=== PATIENT | female | born 1970 | race Caucasian/White ===

== ENCOUNTER 2019-12-16 05:43 | Inpatient (IN) | payer MEDICAID, OTHER ==
[~2019-12-16] VITALS: Ht 170.2 cm; Wt 75.4 kg
[2019-12-16] MEDS ORDERED: HEPARIN DRIP/D5W 100UNITS/ML 250 ML IV SCH ×2 (05:51→06:04)
[2019-12-16] MEDS ORDERED: ATORVASTATIN 20 MG TAB ONE (05:58)
[2019-12-16] MEDS ORDERED: HEPARIN SODIUM (PORCINE) 5000 UNITS/ML 1ML VIAL ONE (05:59)
[2019-12-16] MEDS ORDERED: HEPARIN SODIUM (PORCINE) 5000 UNITS/ML 1ML VIAL IV ONE (06:00)
[2019-12-16] MEDS ORDERED: MORPHINE SULFATE 4 MG/ML SYR/VIAL ONE (06:00)
[2019-12-16] MEDS ORDERED: HEPARIN DRIP/D5W 100UNITS/ML 250 ML IV ONE (06:00)
[2019-12-16] MEDS ORDERED: ONDANSETRON HCL 4 MG/2 ML VIAL ONE ×3 (06:00→12:48)
[2019-12-16] MEDS ORDERED: ONDANSETRON ODT 4 MG TAB PO ONE (06:00)
[2019-12-16] MEDS ORDERED: MORPHINE SULFATE 4 MG/ML SYR/VIAL IV ONE (06:00)
[2019-12-16] MEDS ORDERED: ATORVASTATIN 20 MG TAB PO ONE (06:00)
[2019-12-16 06:11] LABS: Basophils # (auto) 0.1 10 ^3/uL (0-0.2); Basophils % (auto) 0.5 % (0.0-2.0); Eosinophils # (auto) 0.4 10 ^3/uL (0-0.8); Eosinophils % (auto) 4.5 % (0.0-7.0); Hematocrit 45.5 % (36.0-46.0); Hemoglobin 15.4 g/dL (12.2-16.2); Lymphocytes # (auto) 4.9 10 ^3/uL (0.4-5.4); Lymphocytes % (auto) 50.1 % (10.0-50.0); Mean Corpuscular Hemoglobin 30.5 pg (28.0-32.0); Mean Corpuscular Hgb Conc. 33.9 g/dL (32.0-36.0); Mean Corpuscular Volume 90.2 fL (80.0-100.0); Monocytes # (auto) 0.7 10 ^3/uL (0-1.3); Neutrophils # (auto) 3.7 10 ^3/uL (1.6-8.6); Neutrophils % (auto) 37.9 % (37.0-80.0); Nucleated Red Blood Cells % 0.2 %; Platelet Count (auto) 356 10^3/uL (140-450); Red Blood Cells 5.04 10^6/uL (4.0-5.20); Red Cell Distribution Width 14.2 % (11.8-14.3); White Blood Cell 9.8 10^3/uL (4.4-10.8)
[2019-12-16] MEDS ORDERED: LIDOCAINE 2%HCL (LOCAL ANESTH.) INJ 20ML MDV ONE (06:14)
[2019-12-16] MEDS ORDERED: MIDAZOLAM HCL 1MG/1ML-2 ML VIAL ONE ×2 (06:16→06:48)
[2019-12-16] MEDS ORDERED: IOHEXOL 350 MG/ML 100ML IJ ONE (06:16)
[2019-12-16] MEDS ORDERED: SODIUM CHL 0.9% 50 ML ONE (06:16)
[2019-12-16] MEDS ORDERED: ANGIOMAX 250 MG VIAL IV ONE (06:16)
[2019-12-16] MEDS ORDERED: fentaNYL CITRATE 100 MCG/2 ML VL ONE (06:16)
[2019-12-16] MEDS ORDERED: VERAPAMIL 2.5MG/ML INJ 2ML VIAL IV ONE (06:16)
[2019-12-16 06:25] LABS: Partial Thromboplastin Time 26.6 sec (23.64-32.05)
[2019-12-16 06:33] LABS: Calcium 10.9 mg/dL (8.5-10.1); Magnesium 2.1 mg/dL (1.6-2.6); Potassium 3.3 mmol/L (3.5-5.1)
[2019-12-16 06:38] LABS: BUN/Creatinine Ratio 30.2; Bilirubin, Total 0.2 mg/dL (0.2-1.0); Total Protein 7.7 g/dL (6.4-8.2)
[2019-12-16] MEDS ORDERED: diphenhdrAMINE HCL 50 MG/1 ML VL ONE (07:10)
[2019-12-16] MEDS ORDERED: ATROPINE SULF 1 MG/10ml SYR ONE (07:36)
[2019-12-16] MEDS ORDERED: TICAGRELOR 90 MG TAB ONE (07:37)
[2019-12-16] MEDS ORDERED: NITROGLYCERIN 0.4 MG SL TAB SL PRN (08:00)
[2019-12-16] MEDS: LISINOPRIL 5 MG TAB PO SCH (10:00)
[2019-12-16] MEDS: CARVEDILOL 3.125 MG TAB PO SCH ×2 (10:00→21:46)
[2019-12-16] MEDS: ASPirin 81 mg TAB PO SCH (10:08)
[2019-12-16] MEDS ORDERED: SODIUM CHLORIDE 0.9% 1,000 ML IV ONE (11:30)
[2019-12-16] MEDS: SODIUM CHLORIDE 0.9% 1,000 ML IV SCH ×2 (11:30→19:16)
[2019-12-16] MEDS ORDERED: PANTOPRAZOLE 40 MG/10 ML VIAL INJ IV ONE ×2 (12:15→12:18)
[2019-12-16] MEDS ORDERED: ONDANSETRON HCL 4 MG/2 ML VIAL IV PRN (13:00)
[2019-12-16] MEDS ORDERED: ALUM & MAG HYDROX-SIMETH LIQ(MAALOX) 30 ML PO ONE (13:45)
[2019-12-16] MEDS: LORazepam 2MG/ML-1ML VIAL IV PRN (13:59)
[2019-12-16 18:35] VITALS: BP 117/64
[2019-12-16 18:40] VITALS: BP 117/64
--- NOTE | 2019-12-16 18:54 | NUR ---
Telemetry admit from ER JOSÉ MIGUELMARIANA admitted to Telemetry unit after SBAR received. Patient oriented to Emilee Velarde, primary RN, unit, room, bed, and unit policies regarding patient care and visiting hours. Patient now on continuous telemetry monitoring, tele box # [id number] and telemetry reading on arrival to unit is . Patient placed on bedside oxygen, weighed by bedscale and encouraged to call if they need something. All questions and concerns addressed, patient verbalized understanding. Note:
[2019-12-16] MEDS ORDERED: IBUP800T24 PO (19:08)
[2019-12-16] MEDS ORDERED: MORP-110 PO (19:08)
--- NOTE | 2019-12-16 19:35 | NUR ---
OPENING SHIFT NOTE Assumed care of patient who is A&O x4. Currently on 2L NC with no s/s of distress. Denies pain at this time. Angio access site at right wrist assessed. Dressing is CDI. No s/s of hematoma or bleeding. Patient denies pain to the area at this time. PIV in right AC is intact and patent; currently infusing IVF as ordered. PIV in left AC is intact and patent. Flushed with 10ml NS. Patient has been refusing labs; educated on the need for labs to monitor condition. Patient agrees to allow lab draw on phlebotomists next rounds. Bed is in low locked position with side rails up x2. Call light is within reach and patient encouraged to call for assistance when needed. Will continue to monitor for changes PRN.
[2019-12-16 20:00] VITALS: BP 92/57
--- NOTE | 2019-12-16 21:35 | NUR ---
BLOOD PRESSURE BP assessed and is 92/57, HR 64. Currently receiving NS at 150ml/hr. 2200 scheduled dose of Coreg held d/t decreased BP.
[2019-12-16] MEDS: TICAGRELOR 90 MG TAB PO SCH (21:41)
[2019-12-16 21:42] LABS: INR 1.04 (0.9-1.15); Partial Thromboplastin Time 28.8 sec (23.64-32.05)
[2019-12-16 22:00] VITALS: BP 92/57
[2019-12-17] MEDS: SODIUM CHLORIDE 0.9% 1,000 ML IV SCH ×4 (00:50→21:53)
[2019-12-17] MEDS: LORazepam 2MG/ML-1ML VIAL IV PRN (01:57)
[2019-12-17 06:13] VITALS: BP 92/52
[2019-12-17 08:00] VITALS: BP 95/62
--- NOTE | 2019-12-17 08:28 | NUR ---
PATIENT OFF FLOOR
[2019-12-17 09:00] VITALS: BP 95/62
--- NOTE | 2019-12-17 09:20 | NUR ---
MAY MCCABE ON UNIT. INFORMED HER OF PATIENTS DECREASED BP AND HR. PER MAY, HOLD BP MEDS
--- NOTE | 2019-12-17 09:20 | NUR ---
PATIENT BACK IN ROOM
[2019-12-17] MEDS: TICAGRELOR 90 MG TAB PO SCH ×2 (09:46→21:54)
[2019-12-17] MEDS: ASPirin 81 mg TAB PO SCH (09:46)
[2019-12-17] MEDS: CARVEDILOL 3.125 MG TAB PO SCH ×2 (09:46→21:54)
[2019-12-17] MEDS: LISINOPRIL 5 MG TAB PO SCH (09:47)
--- NOTE | 2019-12-17 10:07 | NUR ---
1000 12/17/19 - Faxed to [facility] at [phone] face sheet, [facility] order, cardiology consult, Echo, EKG, H/P. Notified [facility] of all faxed documents.
[2019-12-17 10:13] LABS: Basophils # (auto) 0 10 ^3/uL (0-0.2); Basophils % (auto) 0.6 % (0.0-2.0); Eosinophils # (auto) 0.1 10 ^3/uL (0-0.8); Eosinophils % (auto) 1.3 % (0.0-7.0); Hematocrit 35.5 % (36.0-46.0); Lymphocytes # (auto) 1.7 10 ^3/uL (0.4-5.4); Lymphocytes % (auto) 21.4 % (10.0-50.0); Mean Corpuscular Hemoglobin 30.6 pg (28.0-32.0); Mean Corpuscular Hgb Conc. 33.8 g/dL (32.0-36.0); Mean Corpuscular Volume 90.4 fL (80.0-100.0); Monocytes # (auto) 0.7 10 ^3/uL (0-1.3); Monocytes % (auto) 8.5 % (0.0-12.0); Neutrophils # (auto) 5.4 10 ^3/uL (1.6-8.6); Neutrophils % (auto) 68.2 % (37.0-80.0); Platelet Count (auto) 267 10^3/uL (140-450); Red Blood Cells 3.92 10^6/uL (4.0-5.20); Red Cell Distribution Width 14.2 % (11.8-14.3)
[2019-12-17 10:26] LABS: Calcium 9.2 mg/dL (8.5-10.1); Potassium 3.5 mmol/L (3.5-5.1)
[2019-12-17 10:50] LABS: BUN/Creatinine Ratio 19.3
--- NOTE | 2019-12-17 12:19 | NUR ---
PAGED DR HAMPTON. PATIENTS BP IS 85/51. PATIENT IS ASYMPTOMATIC.
--- NOTE | 2019-12-17 12:45 | NUR ---
BLOOD PRESSURE RECHECKED PATIENTS BP. 89/46. PATIENT IS STILL ASYMPTOMATIC. WILL CONTINUE TO MONITOR
[2019-12-17 13:00] VITALS: BP 85/51
--- NOTE | 2019-12-17 13:47 | NUR ---
INFORMED DR HAMPTON OF PATIENTS BP OF 89/46. NO ORDERS RECEIVED AT THIS TIME
--- NOTE | 2019-12-17 13:48 | NUR ---
PAIN MEDS INFORMED DR HAMPTON OF PATIENTS REQUEST FOR MS CONTIN (MED PATIENT TAKES AT HOME) FOR CHRONIC BACK PAIN. ORDER RECEIVED FROM DR HAMPTON FOR HAUPPAUGE.
[2019-12-17] MEDS ORDERED: LACTULOSE 20Gm/30ML SOLN PO PRN (14:00)
--- NOTE | 2019-12-17 14:36 | NUR ---
MAY MCCABE BEDSIDE WITH PATIENT DISCUSSING PLAN OF CARE
--- NOTE | 2019-12-17 16:30 | NUR ---
Dafne GANNON FROM [facility] CALLED AND WILL BE HERE TONIGHT AROUND 7:30 TO PROVIDE VEST TO PATIENT
[2019-12-17 17:00] VITALS: BP 84/48
[2019-12-17] MEDS: HYDROcodone-ACET 5/325MG TAB PO PRN ×2 (17:47→23:59)
--- NOTE | 2019-12-17 19:30 | NUR ---
[facility] STAFF IS IN TO DELIVER EQUIPMENT AND EDUCATE PATIENT. NOTED.
[2019-12-17] MEDS: DOCUSATE SOD 100 MG CAP PO SCH (21:54)
[2019-12-17] MEDS: ATORVASTATIN 20 MG TAB PO SCH (21:56)
[2019-12-17 22:00] VITALS: BP 85/53
[2019-12-18] VITALS (8 sets, daily range): BP systolic 86–119; BP diastolic 45–72
--- NOTE | 2019-12-18 00:10 | NUR ---
PATIENT COMPLAINED OF NAUSEA AND HEARTBURN. MEDICATED ORDERED.
--- NOTE | 2019-12-18 00:20 | NUR ---
PATIENT WANTED TO TAKE A WALK. ADVISED PATIENT TO COME BACK IF SHE FEELS ANYTHING THAT'S NOT RIGHT ANDSHE CAN'T BE AWAY FROM THE STATION FOR MORE THAN 15 MINUTES. SHOWED UNDERSTANDING.
--- NOTE | 2019-12-18 01:02 | NUR ---
REQUESTED FOR A MEDICINE FOR HEARTBURN, OR PATIENT SAID " I WILL CALL THE CHARGE NURSE ". PAGED . AWAITING CALL BACK.
--- NOTE | 2019-12-18 01:05 | NUR ---
MD CALLED WITH ORDERS MADE AND WILL ADMINISTER SOON IT IS AVAILABLE.
[2019-12-18] MEDS: ALUM & MAG HYDROX-SIMETH LIQ(MAALOX) 30 ML PO PRN ×2 (01:35→22:33)
[2019-12-18] MEDS: SODIUM CHLORIDE 0.9% 1,000 ML IV SCH ×2 (03:00→10:10)
--- NOTE | 2019-12-18 03:42 | NUR ---
PATIENT GOT UPSET AND SHE DECIDED TO GO OUT OF THE ROOM AND TAKE A WALK. WILL KEEP AN EYE ON PATIENT.
--- NOTE | 2019-12-18 03:55 | NUR ---
COMPLAINED OF CHEST PAIN. OFFERED NTG A SPER CP PROTOCOL, BUT REFUSED. PREFERRED IV MORPHINE.
--- NOTE | 2019-12-18 04:00 | NUR ---
ATTEMPTED TO ADMINISTER IV MORPHINE, BUT SITE WAS LEAKING WHILE THE MEDICINE WAS BEING GIVEN. WASTED. WITNESSED BY ZAIDA BOSS.
[2019-12-18] MEDS: MORPHINE SULF INJ 2 MG/ML SYRINGE 1ML IV PRN ×2 (04:08→06:38)
--- NOTE | 2019-12-18 04:08 | NUR ---
COMPLAINED OF SEVERE PAIN. MICHELLE= 110/69 HR= 71 SAT= 98% RA T= 97.8. PATIENT IS VERY ANXIOUS. MEDICATED WITH MORPHINE ORDERED IV. PATIENT SAID, NO CHANGES ON HER PAIN LEVEL AT ALL. WILL MONITOR PATIENT.
--- NOTE | 2019-12-18 04:30 | NUR ---
PATIENT REQUESTED FOR IV ATIVAN. LEODAN BONILLA MD.
--- NOTE | 2019-12-18 04:40 | NUR ---
PAGED , RE: SEVERE CHEST PAIN. CALLED AND ORDERS MADE AND CARRIED OUT. ASKED FOR ATIVAN IV, PER MD BUT SAID, " NO ". ORDERED TROPONIN STAT.
--- NOTE | 2019-12-18 05:50 | NUR ---
REQUESTED FOR A HOT PACK. OFFERED TWO.
--- NOTE | 2019-12-18 06:10 | NUR ---
PATIENT IS ASLEEP. WILL KEEP MONITORING.
--- NOTE | 2019-12-18 06:25 | NUR ---
PATIENT WOKE UP AND SAID, " NO ONE SHOULD BE GOING THROUGH THIS PAIN. NOT RIGHT. SO UNFAIR. I AM GOING HOME! " PATIENT SIGNED AMA FORM. NOTIFIED MD AND SAID, " OKAY ". SUDDENLY, PATIENT CHANGED HER DECISION AFTER TELLING HER THAT ANYTHING COULD HAPPEN WHILE SHE'S ON HER WAY HOME. AND THAT THE HOSPITAL AND THE ENTIRE STAFF ARE NOT LIABLE/ RESPONSIBLE FOR WHATEVER THE RESULT OF HER DECISION TO LEAVE " AMA ". CRYING, PATIENT SAID, " PLS HELP ME ". I TOLD PATIENT THAT I HAVE BEEN HELPING HERE SINCE LAST NIGHT AND EVERY CALL THAT SHE MADE HAS BEEN RESPONDED TO THE WHOLE NIGHT. AGREED TO RECEIVE MORPHINE, INSTEAD OF THE NTG. PATIENT IS RESTING FOR NOW.
[2019-12-18] MEDS: LORazepam 0.5 MG TAB PO PRN ×2 (06:38→19:20)
--- NOTE | 2019-12-18 07:02 | NUR ---
CRITICAL TROP= 18.5 KNOWN HIGH. PATIENT JUST HAD PTCA YESTERDAY. WILL ENDORSE TO AM SHIFT RN TO NOTIFY MD ANYWAY.
--- NOTE | 2019-12-18 07:50 | NUR ---
Opening Shift Note Assumed care of patient, pt comfortably sleeping in bed with HOB up . Breath sounds are even and unlabored. No S/S of distress/SOB or pain. Bed at lowest locked position and call light within reach. Will continue to monitor for changes Q1hr and PRN.
--- NOTE | 2019-12-18 08:08 | NUR ---
Patient's , Carter called and after providing password, he was updated on plan of care.
[2019-12-18] MEDS: DOCUSATE SOD 100 MG CAP PO SCH ×2 (09:34→22:17)
[2019-12-18] MEDS: ASPirin 81 mg TAB PO SCH (09:34)
[2019-12-18] MEDS: CARVEDILOL 3.125 MG TAB PO SCH ×2 (09:34→22:00)
[2019-12-18] MEDS: LISINOPRIL 5 MG TAB PO SCH (09:35)
[2019-12-18] MEDS: TICAGRELOR 90 MG TAB PO SCH (10:00)
--- NOTE | 2019-12-18 10:20 | NUR ---
PAIN Patient reports increase in pain at mid to left chest described as a burning sensation. Requesting Morphine. Patient informed that Morphine has been discontinued due to hypotension. ECG performed- no changes noted from last ECG. Offered Nitroglycerin according chest pain protocol. However, patient refused. [place] 5/325 offered for pain, Patient also refuses, stating, "the [place] doesn't do anything at all". Maalox administered according to orders. Hospitalist paged to notify. Awaiting call back. Addendum: 12/19/19 at 0152 by JENNIFER CHASE RN RN incorrect time: correct time is 2220
--- NOTE | 2019-12-18 11:00 | NUR ---
Patient is c/o pain around the left chest area. No s/s of distress noted. BP 97/60, rr16, SPO2 98%. will medicate per MD orders.
--- NOTE | 2019-12-18 11:10 | NUR ---
Patient is requesting to go outside to get fresh air. Patient is requesting for this nurse to hold the pain medications until she gets back from getting fresh air outside. Will continue to monitor.
--- NOTE | 2019-12-18 11:40 | NUR ---
patient back in bed. No s/s of distress/sob noted or stated.
[2019-12-18] MEDS: HYDROcodone-ACET 5/325MG TAB PO PRN (12:08)
--- NOTE | 2019-12-18 13:20 | NUR ---
Patient went outside for fresh air. No s/s of distress/sob noted/stated. no pain
[2019-12-18] MEDS ORDERED: SODIUM CHLORIDE 0.9% 1,000 ML IV SCH (14:00)
[2019-12-18] MEDS ORDERED: CLOPIDOGREL 300 MG TAB PO ONE (14:15)
[2019-12-18] MEDS ORDERED: PANTOPRAZOLE 40 MG/10 ML VIAL INJ IV ONE (14:15)
[2019-12-18] MEDS ORDERED: RANOLAZINE ER 500 MG TAB PO ONE (15:30)
[2019-12-18 17:42] LABS: Hematocrit 32.9 % (36.0-46.0); Hemoglobin 11.1 g/dL (12.2-16.2)
--- NOTE | 2019-12-18 19:30 | NUR ---
OPENING SHIFT NOTE Assumed care of patient who is A&O x4. Currently on RA with no s/s of distress. Reports 6/10 burning pain in mid to left chest, reportedly ongoing since yesterday. Dr. Norris and ARIC Ureña are aware. Zolle life vest is in place. PIV to left hand intact and patent. Flushed with 10ml NS. POC discussed and patient verbalizes understanding. Bed is in low locked position with side rails up x2. Call light is within reach and patient encouraged to call for assistance when needed. Will continue to monitor for changes PRN.
[2019-12-18] MEDS: ATORVASTATIN 20 MG TAB PO SCH (22:17)
[2019-12-18] MEDS: RANOLAZINE ER 500 MG TAB PO SCH (22:17)
[2019-12-19] MEDS: HYDROcodone-ACET 5/325MG TAB PO PRN ×3 (04:47→19:01)
[2019-12-19 05:00] VITALS: BP 121/64
--- NOTE | 2019-12-19 05:12 | NUR ---
TEMPERATURE Oral temperature is 100.2. Temperature in room reduced and patient instructed to remove sweater. Will reassess.
--- NOTE | 2019-12-19 05:16 | NUR ---
Patient ambulated downstairs to "get fresh air and watch the sunrise". Provided patient with coffee upon request.
--- NOTE | 2019-12-19 05:39 | NUR ---
Patient update Patient called the station to notify this RN that she is still outside and will return in a few minutes, once she has been able to watch the sunrise.
[2019-12-19 05:51] LABS: Hematocrit 37.4 % (36.0-46.0); Hemoglobin 12.3 g/dL (12.2-16.2)
[2019-12-19 06:11] LABS: Calcium 8.7 mg/dL (8.5-10.1); Potassium 3.4 mmol/L (3.5-5.1)
[2019-12-19 06:18] LABS: BUN/Creatinine Ratio 28.1
--- NOTE | 2019-12-19 06:38 | NUR ---
CRITICAL LAB Troponin is 15.3. Known high, and trending down. Patient is s/p PTCA on 12/16/19.
--- NOTE | 2019-12-19 07:50 | NUR ---
Opening shift note Assumed care of patient from NOC RN. Patient is Aox4, no signs and symptoms of distress noted. Bed is in lowest locked position, side rails up x2, and call light within reach. Updated patient on plan of care and patient verbalized understanding. Will continue to monitor q1hr and PRN.
[2019-12-19 08:00] VITALS: BP 125/68
[2019-12-19] MEDS: LISINOPRIL 5 MG TAB PO SCH ×2 (10:00→10:52)
[2019-12-19] MEDS: CARVEDILOL 3.125 MG TAB PO SCH ×3 (10:00→22:00)
[2019-12-19] MEDS: PANTOPRAZOLE 40 MG TAB PO SCH (10:02)
[2019-12-19] MEDS: RANOLAZINE ER 500 MG TAB PO SCH ×2 (10:02→22:29)
[2019-12-19] MEDS: CLOPIDOGREL BISULFATE 75 MG TAB PO SCH (10:02)
[2019-12-19] MEDS: DOCUSATE SOD 100 MG CAP PO SCH ×2 (10:02→22:30)
[2019-12-19] MEDS: ASPirin 81 mg TAB PO SCH (10:03)
[2019-12-19] MEDS ORDERED: POTASSIUM CHL 20 Meq TABLET PO ONE (12:45)
[2019-12-19 14:00] VITALS: BP 112/75
--- NOTE | 2019-12-19 14:46 | NUR ---
Nutrition Assessment Notes Please refer to link for full assessment notes. Est Energy needs: 7555-1308 kcals (23-25 kcal/kgBW) Est Protein needs: 59-74 gms/day (0.8-1.0 gm/kgBW) Will continue to monitor and reassess prn. Addendum: 12/19/19 at [address] Amended: Links added.
--- NOTE | 2019-12-19 16:30 | NUR ---
shower Patient allowed to shower per MD coyne. Patient provided shower amenities, instructed patient to call for help if needed. Patient verbalized understanding. Will continue care.
--- NOTE | 2019-12-19 16:45 | NUR ---
IV removal IV was not patent and intact. IV DC'd with clean sterile technique, catheter fully intact. Pressure dressing applied to site. Patient tolerated well.
--- NOTE | 2019-12-19 16:50 | NUR ---
IV insertion IV access obtained, via clean sterile technique by inserting 22 gauge catheter at right forearm after 1 attempt. IV secured properly. No trauma to site. Patient tolerated well.
[2019-12-19 18:00] VITALS: BP 130/69
--- NOTE | 2019-12-19 18:50 | NUR ---
Pain patient complaining of pain 6/10 on her chest. Will give ordered PRN medication as prescribed. Will continue to monitor q1hr and PRN.
--- NOTE | 2019-12-19 19:10 | NUR ---
End of shift note Endorsed care to NOC ZAIDA nuñez. No s/s of distress noted.
--- NOTE | 2019-12-19 19:15 | NUR ---
Opening Shift Note Assumed care of patient, awake and alert. No S/S of distress/SOB or pain. Instructed on POC and to call for assistance PRN, will continue to monitor for changes Q1hr and PRN. Safety precautions maintained bed is in lowest position and locked, bed rails 2x. Call light and bedside table are within reach.
[2019-12-19 22:00] VITALS: BP 105/56
[2019-12-19] MEDS: ATORVASTATIN 20 MG TAB PO SCH (22:30)
[2019-12-19] MEDS: LORazepam 0.5 MG TAB PO PRN (22:42)
[2019-12-20 05:01] VITALS: BP 102/64
[2019-12-20 06:00] LABS: Magnesium 2.3 mg/dL (1.6-2.6); Potassium 3.8 mmol/L (3.5-5.1)
--- NOTE | 2019-12-20 06:34 | NUR ---
Critical Lab MD aware. Trop trending down. Will continue to monitor patient Q1 and PRN. At this time patient has no s/s of distress or SOB, no complaints.
[2019-12-20] MEDS: HYDROcodone-ACET 5/325MG TAB PO PRN ×2 (07:02→12:05)
--- NOTE | 2019-12-20 07:18 | NUR ---
End of Shift Note Endorsed care to dayshift RN. At this time patient has no s/s of distress or SOB. Patient responsive to name and touch.
--- NOTE | 2019-12-20 07:37 | NUR ---
Opening shift note Assumed care of patient from NOC ZAIDA [place]. Patient is Aox4, no signs and symptoms of distress noted. Bed is in lowest locked position, side rails up x2, and call light within reach. Updated patient on plan of care and patient verbalized understanding. Will continue to monitor q1hr and PRN.
[2019-12-20] MEDS: ASPirin 81 mg TAB PO SCH (09:57)
[2019-12-20] MEDS: PANTOPRAZOLE 40 MG TAB PO SCH (09:58)
[2019-12-20] MEDS: CLOPIDOGREL BISULFATE 75 MG TAB PO SCH (09:58)
[2019-12-20] MEDS: DOCUSATE SOD 100 MG CAP PO SCH (09:58)
[2019-12-20] MEDS: RANOLAZINE ER 500 MG TAB PO SCH (09:58)
[2019-12-20] MEDS: CARVEDILOL 3.125 MG TAB PO SCH (09:59)
[2019-12-20] MEDS: LISINOPRIL 5 MG TAB PO SCH (10:00)
[2019-12-20] MEDS: ALUM & MAG HYDROX-SIMETH LIQ(MAALOX) 30 ML PO PRN (12:05)
--- NOTE | 2019-12-20 12:46 | NUR ---
Paged ARIC Henry Paged ARIC henry regarding patients run of v-tach. awaiting call back.
--- NOTE | 2019-12-20 12:50 | NUR ---
physician rounding Dr. Cazares at bedside. Updated her on patient status. New orders received, will follow through, will continue care.
--- NOTE | 2019-12-20 12:55 | NUR ---
Received call back from ARIC henry Updated Rosa henry regarding patients run of v-tach. Per Rosa patient is clear to be discharged home. No new orders recieved, will continue care.
[2019-12-20] MEDS ORDERED: ASPI81CH43 PO (13:07)
[2019-12-20] MEDS ORDERED: CLOP75TA28 PO (13:07)
[2019-12-20] MEDS ORDERED: CAR3125T PO (13:07)
[2019-12-20] MEDS ORDERED: DOCU100C8 PO (13:07)
[2019-12-20] MEDS ORDERED: PANT40T PO (13:07)
[2019-12-20] MEDS ORDERED: RANO500T PO (13:07)
[2019-12-20] MEDS ORDERED: ATOR20TA50 PO (13:07)
[2019-12-20] MEDS ORDERED: LISI-275 PO (13:07)
--- NOTE | 2019-12-20 13:30 | NUR ---
Pain patient verbalized feeling pain on left shoulder, patient stated that she would like heat packs. Provided patient with heat packs. Will continue to monitor.
[2019-12-20 14:51] VITALS: BP 118/62
--- NOTE | 2019-12-20 16:00 | NUR ---
Discharge Discharge instructions given as ordered. Encourage to follow up with PMD as instructed. All questions and concerns addressed. Patient verbalized understanding. IV removed with catheter intact, pressure dressing applied. Telemetry unit returned to ICU. Patient stated "I can walk down to the lobby, I do not need a wheelchair." Patient left with all personal belongings. No distress noted at time of departure.
== END 2019-12-20 16:03 | disposition home or self-care (01) | DRG 174 ==
LOC: ER 05:43 → EDBD 05:43 → OVERFLOW 05:44 → WEST WING 18:27 → TELE-WESTW 12-17 01:39
PROVIDERS: ADMIT Internal Medicine; ATTEND Internal Medicine
PROC: 027036Z Dilation of Coronary Artery, One Artery with Three Drug-eluting Intraluminal Devices, Percutaneous Approach (ICD-10-PCS; principal; 2019-12-16)
PROC: 4A023N7 Measurement of Cardiac Sampling and Pressure, Left Heart, Percutaneous Approach (ICD-10-PCS; 2019-12-16)
PROC: B2111ZZ Fluoroscopy of Multiple Coronary Arteries using Low Osmolar Contrast (ICD-10-PCS; 2019-12-16)
PROC: B2151ZZ Fluoroscopy of Left Heart using Low Osmolar Contrast (ICD-10-PCS; 2019-12-16)
DX: I21.11 ST elevation (STEMI) myocardial infarction involving right coronary artery (principal); I50.43 Acute on chronic combined systolic (congestive) and diastolic (congestive) heart failure; I47.2 Ventricular tachycardia; E78.1 Pure hyperglyceridemia; E78.5 Hyperlipidemia, unspecified; E87.6 Hypokalemia; F17.200 Nicotine dependence, unspecified, uncomplicated; F41.1 Generalized anxiety disorder; G89.29 Other chronic pain; I25.10 Atherosclerotic heart disease of native coronary artery without angina pectoris; I95.9 Hypotension, unspecified; M54.9 Dorsalgia, unspecified; K21.9 Gastro-esophageal reflux disease without esophagitis; K59.00 Constipation, unspecified; Z82.49 Family history of ischemic heart disease and other diseases of the circulatory system; Z71.6 Tobacco abuse counseling
CPT/HCPCS: 36415; 71045; 74176; 80048; 80053; 80061; 83036; 83735; 83880; 84132; 84484; 84702; 85014; 85018; 85025; 85610; 85730; 92928; 92929; 93005; 93306; 93458; 99152; 99153; 99291; C1874; C1887; C9113; G0378; J2250; J2405

== ENCOUNTER 2020-12-10 00:29 | Emergency (ER) | payer MEDICAID ==
[~2020-12-10] VITALS: Ht 170.2 cm; Wt 57.6 kg
[~2020-12-10 00:29] MED LIST: ASPI81CH43 PO; ATOR20TA50 PO; CAR3125T PO; CLOP75TA28 PO; DOCU100C10 PO; IBUP800T27 PO; LISI-275 PO; MORP-110 PO; PANT40T PO; RANO500T PO
[2020-12-10 01:27] LABS: Basophils # (auto) 0.1 10 ^3/uL (0-0.2); Basophils % (auto) 0.7 % (0.0-2.0); Eosinophils # (auto) 0.1 10 ^3/uL (0-0.8); Eosinophils % (auto) 0.9 % (0.0-7.0); Hematocrit 41.9 % (36.0-46.0); Hemoglobin 14.5 g/dL (12.2-16.2); Lymphocytes # (auto) 1.8 10 ^3/uL (0.4-5.4); Lymphocytes % (auto) 20.5 % (10.0-50.0); Mean Corpuscular Hemoglobin 32.5 pg (28.0-32.0); Mean Corpuscular Hgb Conc. 34.7 g/dL (32.0-36.0); Mean Corpuscular Volume 93.6 fL (80.0-100.0); Monocytes # (auto) 0.4 10 ^3/uL (0-1.3); Neutrophils # (auto) 6.4 10 ^3/uL (1.6-8.6); Neutrophils % (auto) 72.9 % (37.0-80.0); Platelet Count (auto) 284 10^3/uL (140-450); Red Blood Cells 4.48 10^6/uL (4.0-5.20); Red Cell Distribution Width 14.1 % (11.8-14.3); White Blood Cell 8.8 10^3/uL (4.4-10.8)
[2020-12-10 01:45] LABS: Albumin 4.1 g/dL (3.4-5.0); Anion Gap 7 (5-15); Blood Urea Nitrogen 26 mg/dL (7-18); Calcium 9.4 mg/dL (8.5-10.1); Carbon Dioxide 24 mmol/L (21-32); Chloride 108 mmol/L (98-107); Glucose 104 mg/dL (74-106); Potassium 3.6 mmol/L (3.5-5.1); Sodium 139 mmol/L (136-145)
[2020-12-10 01:47] LABS: Alanine Aminotransferase 27 U/L (13-56); Aspartate Aminotransferase 21 U/L (15-37); BUN/Creatinine Ratio 34.2; Blood Alcohol < 3.0 mg/dL (0-5); GFR African American 104 mL/min; GFR Non-African American 86 mL/min
[2020-12-10 01:50] LABS: Acetaminophen < 2.0 ug/mL (10-30); Alkaline Phosphatase 51 U/L (45-117); Bilirubin, Total 0.5 mg/dL (0.2-1.0); Salicylate 5.8 mg/dL (2.8-20.0); Total Protein 8.1 g/dL (6.4-8.2)
[2020-12-10 03:45] VITALS: BP 127/71
== END 2020-12-10 04:25 | disposition home or self-care (01) ==
LOC: ER 00:34
DX: T40.2X1A Poisoning by other opioids, accidental (unintentional), initial encounter (principal); F41.9 Anxiety disorder, unspecified; R41.0 Disorientation, unspecified; I10 Essential (primary) hypertension; I25.2 Old myocardial infarction; Y92.89 Other specified places as the place of occurrence of the external cause
CPT/HCPCS: 36415; 80053; 80320; 80329; 84484; 85025; 93005